=== PATIENT | male | born 1955 | race Caucasian/White ===

== ENCOUNTER 2022-03-02 07:52 | Outpatient (CLI) | payer OTHER, SELFPAY ==
[2022-03-02 10:05] LABS: Cholesterol* 253 mg/dL (90-199)
[2022-03-02 10:06] LABS: HDL Cholesterol* 102 mg/dL (>=40); LDL Cholesterol Calculated 125 mg/dL (<100); Triglycerides* 131 mg/dL (40-149)
[2022-03-02 20:32] LABS: Glucose* 98 mg/dL (60-115)
--- NOTE | 2022-03-21 11:25 | ONC.NURNOTE ---
Patient was sent to us from primary care for second opinion. This was discussed with Dr. Dave last week and found to not be urgent, as patient is being cared for by Dr. Thrasher. Patient called today to set up the second opinion and he notes that new medication that he was started on has increased his platelets significantly and would like to hold off on second opinion. He will call when/if he would like to do this. Dr. Mckeon's office was notified.
== END 2022-03-02 07:53 | disposition home or self-care (01) ==
LOC: NFLDREF 07:52
PROVIDERS: PCP Family Medicine; Visit Provider Family Medicine
DX: Z13.6 Encounter for screening for cardiovascular disorders (principal); Z12.5 Encounter for screening for malignant neoplasm of prostate; Z13.1 Encounter for screening for diabetes mellitus
CPT/HCPCS: 80061; 82947; 84153

== ENCOUNTER 2022-08-30 07:40 | Outpatient (CLI) | payer OTHER, SELFPAY | END 2022-08-30 07:41 | disposition home or self-care (01) | LOC: NFLDREF 09-01 01:43 | PROVIDERS: PCP Family Medicine; Referring Provider Family Medicine; Visit Provider Family Medicine | DX: E78.5 Hyperlipidemia, unspecified (principal) | CPT/HCPCS: 80061 ==

== ENCOUNTER 2023-03-16 07:36 | Outpatient (CLI) | payer OTHER, SELFPAY | END 2023-03-16 07:37 | disposition home or self-care (01) | LOC: NFLDREF 03-21 05:59 | PROVIDERS: PCP Family Medicine; Referring Provider Family Medicine; Visit Provider Family Medicine | DX: E78.5 Hyperlipidemia, unspecified (principal); D69.3 Immune thrombocytopenic purpura; Z12.5 Encounter for screening for malignant neoplasm of prostate | CPT/HCPCS: 80053; 80061; 84153 ==

== ENCOUNTER 2024-03-18 07:30 | Outpatient (CLI) | payer OTHER, SELFPAY | END 2024-03-18 07:31 | disposition home or self-care (01) | LOC: NFLDREF 03-19 13:24 | PROVIDERS: PCP Family Medicine; Referring Provider Family Medicine; Visit Provider Family Medicine | DX: E78.5 Hyperlipidemia, unspecified (principal); D69.3 Immune thrombocytopenic purpura | CPT/HCPCS: 80053; 80061 ==

== ENCOUNTER 2024-06-27 08:24 | Outpatient (CLI) | payer OTHER, SELFPAY | END 2024-06-27 08:25 | disposition home or self-care (01) | PROVIDERS: PCP Family Medicine; Visit Provider Family Medicine | DX: E78.2 Mixed hyperlipidemia (principal); Z79.899 Other long term (current) drug therapy | CPT/HCPCS: 80053; 80061; 84450; 84460; G0103 ==

== ENCOUNTER 2024-09-14 18:39 | Emergency (ER) | payer OTHER, SELFPAY ==
--- OUTSIDE RECORDS SUMMARY | 2024-09-14 18:41 | XMS_ITS | Clinical Summary ---
Author Organization [facility] Address [address] [place] [id number] Care Team Providers Care Beauty Sales Consultant Name Role Phone Ab Mckeon MD Primary Care Provider [phone] Allergies Active Allergy Reactions Criticality Noted Date Comments Penicillin V Potassium Rash 03/02/2021 Quinine Sulfate Rash 03/02/2021 Medications ascorbic acid, vitamin C, (VITAMIN C) 500 mg tablet Take 500 mg by mouth once daily. Active glucosamine-cho ndroitin, 500-400 mg, (COSAMIN DS 500/400) 500-400 mg cap Take 1 Capsule by mouth in the morning and 1 Capsule in the evening. Active nutritional supplement/fibe r (JUICE PLUS FIBRE ORAL) Take 2 Tablets by mouth every morning. Active diphenhydrAMINE (BENADRYL) 25 mg tablet Take 50 mg by mouth at bedtime if needed (Every 2 to 3 nights). Active cholecalciferol (VITAMIN D3) 2,000 unit capsule Take 2,000 units by mouth once daily. Active famotidine (PEPCID) 20 mg tablet Take 20 mg by mouth in the morning and 20 mg in the evening. Active CHROMIUM PICOLINATE ORAL Take 1 Tablet by mouth once weekly. on Sundays. Active docosahexaenoic acid/epa (FISH OIL ORAL) Take 1,200 mg by mouth. 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 History of COVID-19 01/24/2022 Allergic rhinitis 09/28/2021 Dyshidrosis (pompholyx) 09/28/2021 History of idiopathic thrombocytopenic purpura 0 09/28/2021 History of nephrolithiasis 09/28/2021 Onychomycosis 09/28/2021 Right bundle branch block 09/28/2021 Sleep disorder 09/28/2021 Vitamin D deficiency 09/28/2021 Immunizations Immunization Administration Dates Next Due COVID-19 vaccine (Moderna 100mcg/0.5mL) PF, MDV 04/12/2021,08/18/2020,07/21/2020 Influenza Virus, Unspecified 03/02/2021, 03/01/2020,04/14/2019,04/08,04/02/2017,03/27/2016,03/22/2015 ,03/09/2014,03/03/2013,02/26/2012 Influenza, IIV4 02/13/2011 Meningococcal Vaccine (Menactra) 02/13/2010 Pneumococcal Poly,23-Valent (Pneumovax) 04/14/2019,03/01/2009 Pneumococcal conj 13-Valent (Prevnar 13) 03/09/2014 Td (Age >=7 Years) 12/19/2007 Tdap, Unspecified 12/28/2017 Family History Medical History Relation Name Comments Other Other aunt with ITP Relation Name Status Comments Other Social History Tobacco Use Types Packs/Day Years Used Date Smoking Tobacco: Never Smokeless Tobacco: Never Tobacco Cessation:Counseling Given: Yes Alcohol Use Standard Drinks/Week Comments Yes 0 (1 standard drink = 0.6 oz pur e alcohol) occassional glass of wine Social Connections Answer Date Recorded Frequency of Communication with Friends and Fami ly Not on file 10/31/2022 Financial Resource Strain Answer Date R ecorded Difficulty of Paying Living Expenses 3 10/27/2021 Difficulty of Paying Living Expenses Not on file 10/27/2021 Food Insecurity Answer Date Recorded Worried About Running Out of Food in the Last Ye ar 1 10/27/2021 Transportation Needs Answer Date Record ed Lack of Transportation (Medical) 1 10/27/2021 Housing Stability Answer Date Recorded Unable to Pay for Housing in the Last Year 1 10/27/2021 Sex and Gender Information Value Date Recorded Sex Assigned at Not on file Legal Sex Male 1:26 PM CDT Gender Identity Not on file Sexual Orientation Not on file 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 Not on file Not on file Not on file Obstetrics History Last Filed Vital Signs Vital Sign Reading Time Taken Comments Blood Pressure 123/60 11/28/2022 1:49 PM CDT Pulse 63 11/28/2022 1:49 PM CDT Temperature 36.4 C (97.6 F) 11/28/2022 1:49 PM CDT Respiratory Rate 20 11/28/2022 1:49 PM CDT Oxygen Saturation 97% 11/28/2022 1:49 PM CDT Inhaled Oxygen Concentration - - Weight 96.3 kg (212 lb 6.4 oz) 11/28/2022 1:49 P M CDT Height 185.4 cm (6' 1) 01/24/2022 1:55 PM CDT Body Mass Index 28.02 01/24/2022 1:55 PM CDT Plan of Treatment Health Maintenance Due Date Last Done Comments Depression screening for age 12+ 1966 Hepatitis C screening for ag e 18-79 1972 Colonoscopy through age 75 10/02/1999 Lipids for age 45-75 10/02/1999 Zoster (shingles) series for age 50+ (1 of 2) 2004 Medicare Wellness for age 65+ 10/02/2019 BMI (ht and wt on same day) for age 18+ 01/24/2023 01/24/2022, 09/28/2021 COVID-19 vaccine series ( season) 2024 10/19/2022, 04/12/2022, 10/25/2021, Additional history exists Influenza Vaccine (#1) 2024 , 03/01/2020, 04/14/2019, Additional history exists Pneumococcal series for age 50+ (3 of 3 - PCV20 or PCV21) 04/14/2024 04/14/2019, 03/09/2014, 03/01/2009 Tetanus booster 12/29/2027 12/28/2017, 12/19/2007 RSV vaccine for adults or (1 - 1-dose 75+ series) 2029 Tdap Completed 12/28/2017 Insurance [employer] CHOICE PPO MR MEDICARE PART A HB ONLY Advance Directives Documents on File Type Date 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 Healthcare Directive 07/19/2021 022 * DNR (Latest Code Status on File) Date Activated Date Inactivated Comments 01/30/2022 3:02 PM 02/03/2022 2:26 PM Question Answer Comments Code Status Discussion: Reviewed Preferences * DNR Date Activated Date Inactivated Comments 01/24/2022 4:25 PM 01/26/2022 2:46 PM Question Answer Comments Code Status Discussion: Reviewed Preferences * Full Code Date Activated Date Inactivated Comments 01/24/2022 4:24 PM 01/24/2022 4:25 PM Question Answer Comments Code Status Discussion: Unable to Assess Preferences, Provider to review later Care Teams Beauty Sales Consultant Relationship Specialty Start Date End Date Ab Mckeon MD [address] [place] [id number] PCP - General Family Practice 01/24/22
--- NOTE | 2024-09-14 18:48 | CRLHL7_ITS ---
For Patients: As a result of the Century Cures Act, medical imaging exams and procedure reports are released immediately into your electronic medical record. You may view this report before your referring provider. If you have questions, please contact your health care provider. INDICATION: Left leg swelling. Prior history of DVT in right leg. TECHNIQUE: Ultrasound venous duplex lower left extremity. Compression venous exam was performed using terrazas-scale, color Doppler, and spectral Doppler analysis. COMPARISON: None. FINDINGS: Mildly heterogeneous noncompressible material consistent with deep venous thrombosis in the left distal femoral, popliteal, peroneal and posterior tibial veins. Left common femoral, deep femoral and proximal femoral veins and greater saphenous vein are patent. Contralateral right common femoral vein is patent. Soft tissues elsewhere as imaged are unremarkable. IMPRESSION: Left lower extremity deep venous thrombosis involving the distal femoral, popliteal, peroneal and posterior tibial veins. Discussed with Dr. Mallory by telephone at 7:49 p.m. on 09/14/2024. Dictated by Manan Pereira MD @ 09/14/2024 7:50:06 PM Dictated by: Manan Pereira MD @ 09/14/2024 19:54:26 (Electronically Signed)
[2024-09-14 18:49] VITALS: BP 152/79; PULSE 75; RESP 18; TEMP 36.9; O2SAT 99; BMI 24.4
--- NOTE | 2024-09-14 19:29 | ED.GENADULT ---
HPI - General Adult General Date Seen: 09/14/24 Chief complaint: Lower Extremity Swelling Stated complaint: Potential Blood Clot, Lower Lt leg Time Seen by Provider: 09/14/24 19:10 History of Present Illness HPI narrative: Patient is a 68-year-old male who has about a 5-6 day history of left lower extremity swelling and discomfort. He has a history of DVT on the right side, in 2021, which he says was on the heels of a medication to increase his platelets. He says he was down to 2000 platelets, and he was started on a medicine for that which increases platelets to 500,000. Then he got a blood clot. He was on anticoagulation for a while but is no longer taking that. No recent travel or immobility, no cancer history, no recent surgeries. He says he was on the treadmill 1 day last week when he noted that his leg was feeling sore, he thought initially he might have pulled a muscle but then he developed more pain and swelling and that felt very similar to his prior blood clot which is why comes in. No fevers, no respiratory complaints. Related Data Home Medications ?Medication ?Instructions ?Recorded ?Confirmed ascorbic acid (vitamin C) 500 mg 500 mg PO QDAY 03/08/22 09/14/24 tablet cholecalciferol (vitamin D3) 10 10 mcg PO QDAY 03/08/22 09/14/24 mcg (400 unit) capsule glucos sul [id number]-C-Mn 1 cap PO DAILY 03/20/23 09/14/24 omega-3 fatty acids 500 mg capsule 500 mg PO QDAY 03/20/23 09/14/24 nutritional supplement-fiber oral 1 ea PO DAILY 03/25/24 09/14/24 liquid red yeast rice 600 mg capsule 600 mg PO QDAY 03/25/24 09/14/24 Previous Rx's ?Medication ?Instructions ?Recorded rosuvastatin 10 mg tablet 10 mg PO QDAY #90 tabs 07/02/24 rivaroxaban 15 mg tablet (Xarelto) 15 mg PO DAILY 3 weeks #42 tabs 09/14/24 Allergies Allergy/AdvReac Type Severity Reaction Status Date / Time Penicillins Allergy Mild Rash Verified 09/14/24 18:52 quinine Allergy Mild Rash Verified 09/14/24 18:52 [facility] Medical History (Updated 09/14/24 @ 20:01 by Francine Mallory MD) DVT (deep venous thrombosis) ?I82.409 - Acute embolism and thrombosis of unspecified deep veins of unspecified lower extremity (ICD-10) Sleep disorder ?G47.9 - Sleep disorder, unspecified (ICD-10) History of vitamin D deficiency ?Z86.39 - Personal history of other endocrine, nutritional and metabolic disease (ICD-10) Right bundle branch block ?I45.10 - Unspecified right bundle-branch block (ICD-10) History of nephrolithiasis ?Z87.442 - Personal history of urinary calculi (ICD-10) Dyshidrosis [pompholyx] ?L30.1 - Dyshidrosis [pompholyx] (ICD-10) Allergic rhinitis ?J30.9 - Allergic rhinitis, unspecified (ICD-10) Immune thrombocytopenic purpura (~1974) ?D69.3 - Immune thrombocytopenic purpura (ICD-10) Surgical History History of splenectomy (1975) ?Z90.81 - Acquired absence of spleen (ICD-10) Family History (Updated 03/01/22 @ 11:33 by Prisca Ceron) Aunt Immune thrombocytopenic purpura Social History (Updated 03/24/24 @ 09:34 by Julia Munoz~[facility], [facility]) What is your current living situation?: I presently have a place to live Problems where you live: no known problems In the past 12 months, utilities in danger of being shut off: no In past 12 months, lack of transportation kept you from medical appts, meetings, work, or getting things needed for daily living: no In the past 12 mos, have been you worried that your food would run out before you had money to buy more?: never true In the past 12 mos, the food you bought just didn't last and you didn't have money to buy more?: never true Smoking Status: Never smoker Second hand tobacco smoke exposure: No How often do you have a drink containing alcohol: never AUDIT-C Alcohol total score: 0 Non-prescribed substance use: denies use How often does anyone, including family, friends and others, physically hurt you: never How often does anyone, including family, friends and others, insult or talk down to you: never How often does anyone, including family, friends and others, threaten you with harm: never How often does anyone, including family, friends and others, scream or curse at you: never Exam Narrative: Exam Narrative: Vital signs reviewed Left leg is a edematous, mildly erythematous, some tenderness over the calf and posterior knee. Distal CMS is intact, dorsalis pedis pulse is palpable. No petechiae or purpura. Const: Vital Signs, click to edit/add: Vital Signs - 24 hr 09/14/24 18:49 Temperature 98.5 F Pulse Rate [Right Pulse Oximeter] 75 Respiratory Rate 18 Blood Pressure [Ri ght Upper Arm] 152/79 H Pulse Oximetry 99 Oxygen Delivery Me thod Room Air Course Course ED Course: Ultrasound of the left leg shows clot in the distal femoral vein down throughout the calf. Patient says he had labs checked in June, his platelets have been normal since that episode with ITP in the past. He says his renal function was normal at that time as well. I have given him a dose of Xarelto, he says that he thinks that was what he had better insurance coverage for the last time. Recommended primary care follow-up in the next few weeks, I gave him enough Xarelto to cover the 1st 3 weeks at 15 mg b.i.d.. Reviewed reasons to return such as significant shortness of breath or chest pain, fainting, or significant worsening of the leg in terms of pain or discoloration. Vital Signs Vital signs: Initial Vital Signs Temperature 98.5 F 09/14/24 18:49 Temperature Source Temporal Artery Scan 09/14/24 18:49 Pulse Rate 75 09/14/24 18:49 Respiratory Rate 18 09/14/24 18:49 Blood Pressure 152/79 H 09/14/24 18:49 Blood Pressure Mean 103 09/14/24 18:49 Blood Pressure Position Sitting 09/14/24 18:49 Pulse Oximetry 99 09/14/24 18:49 Oxygen Delivery Method Room Air 09/14/24 18:49 Vital Signs Temperature 98.5 F 09/14/24 18:49 Pulse Rate 75 09/14/24 18:49 Respiratory Rate 18 09/14/24 18:49 Blood Pressure 152/79 H 09/14/24 18:49 Pulse Oximetry 99 09/14/24 18:49 Oxygen Delivery Method Room Air 09/14/24 18:49 Temperature 98.5 F 09/14/24 18:49 Pulse Rate 75 09/14/24 18:49 Respiratory Rate 18 09/14/24 18:49 Blood Pressure 152/79 H 09/14/24 18:49 Pulse Oximetry 99 09/14/24 18:49 Oxygen Delivery Method Room Air 09/14/24 18:49 Medications Administered Medications: Generic Name Dose Route Start Last Admin Trade Name Luis PRN Reason Stop Dose Admin Rivaroxaban 15 mg 09/14/24 19:57 09/14/24 20:08 Rivaroxaban 10 Mg Tablet PO 09/14/24 19:58 15 mg ONCE ONE Administration Discharge Plan Discharge Clinical Impression: Deep vein thrombosis (DVT) of left lower extremity Patient Disposition: Home, Self-Care Condition: Stable Instructions: Deep Vein Thrombosis (ED) Additional Instructions: Take Xarelto as prescribed. if you have severe pain or discoloration of the leg, fevers, significant chest pain shortness of breath or fainting, return to the emergency department. Otherwise, please make a follow-up appointment with your primary doctor in the next few weeks. You will need to discuss term anticoagulation with primary care. Prescriptions: New Xarelto 15 mg tablet 15 mg PO DAILY 21 Days Qty: 42 0RF Rx Instructions: must administer with evening meal No Action ascorbic acid (vitamin C) 500 mg tablet 500 mg PO QDAY cholecalciferol (vitamin D3) 10 mcg (400 unit) capsule 10 mcg PO QDAY nutritional supplement-fiber Liquid 1 ea PO DAILY Rx Instructions: Takes one time a day omega-3 fatty acids 500 mg capsule 500 mg PO QDAY glucos sul [id number]-miu-mxomu-C-Mn [Glucosamine Chondroitin] 1 cap PO DAILY red yeast rice 600 mg capsule 600 mg PO QDAY Rx Instructions: give with meal/snack rosuvastatin 10 mg tablet 10 mg PO QDAY Qty: 90 3RF Follow Up/Referrals: Ab Mckeon MD [Primary Care Provider] - Stand Alone Forms: MyHealth Info Instructions
[2024-09-14] MEDS: RIVAROXABAN 10 MG TABLET 15 MG PO (20:08)
[2024-09-14 20:10] VITALS: BP 145/78; PULSE 70; RESP 18; TEMP 36.9; O2SAT 99
[2024-09-14 20:11] VITALS: BP 145/78; PULSE 70; RESP 18; TEMP 36.9
--- OUTSIDE RECORDS SUMMARY | 2024-09-14 20:14 | XMS_ITS | Clinical Summary ---
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
== END 2024-09-14 20:13 | disposition home or self-care (01) ==
LOC: ED 20:12
PROVIDERS: Emergency Provider Emergency Medicine; PCP Family Medicine
DX: I82.412 Acute embolism and thrombosis of left femoral vein (principal)
CPT/HCPCS: 93971; 99284; A9270

== ENCOUNTER 2025-03-24 07:39 | Outpatient (CLI) | payer OTHER, SELFPAY | END 2025-03-24 07:40 | disposition home or self-care (01) | LOC: NFLDREF 03-26 09:47 | PROVIDERS: PCP Family Medicine; Referring Provider Family Medicine; Visit Provider Family Medicine | DX: Z12.5 Encounter for screening for malignant neoplasm of prostate (principal); E78.5 Hyperlipidemia, unspecified | CPT/HCPCS: 80053; 80061; G0103 ==